=== PATIENT | female | born 1995 | race African-American/Black ===

== ENCOUNTER 2018-08-23 05:02 | Emergency (ER) | payer MEDICAID ==
[~2018-08-23] VITALS: Ht 165.1 cm; Wt 53.6 kg
[2018-08-23 06:42] LABS: BASOPHILS % 2.2 % (0.0-2.0); EOSINOPHILS % 5.1 % (0.0-5.0); HEMATOCRIT. 37.4 % (36.0-48.0); HEMOGLOBIN. 12.7 g/dL (12.0-16.0); LYMPHOCYTES % 43.1 % (20.0-50.0); MEAN CORPUSCULAR HEMOGLOBIN 30.1 pg (28.0-32.0); MEAN CORPUSCULAR VOLUME 88.9 fL (81.0-99.0); MEAN PLATELET VOLUME 9.4 fl (7.4-10.4); MONOCYTES % 9.9 % (2.0-8.0); NEUTROPHILS % 39.7 % (40.0-76.0); PLATELET 210 x1000/uL (130-400); RED BLOOD CELL COUNT 4.21 mill/uL (4.2-5.4); RED CELL DISTRIBUTION WIDTH 12.7 % (11.6-14.6)
[2018-08-23 06:45] LABS: CHLORIDE 109 mEq/L (98-107)
[2018-08-23 06:46] LABS: INR 1.1; PROTHROMBIN TIME 11.4 sec (9.1-11.1)
[2018-08-23 07:50] LABS: CLARITY URINE CLEAR (CLEAR); COLOR URINE YELLOW (YELLOW); KETONES URINE NEGATIVE (NEGATIVE); LEUKOCYTE ESTERASE URINE NEGATIVE (NEGATIVE); NITRITE URINE NEGATIVE (NEGATIVE); OCCULT BLOOD URINE NEGATIVE (NEGATIVE); PROTEIN URINE NEGATIVE (NEGATIVE); SPECIFIC GRAVITY URINE 1.028 (1.005-1.030); UROBILINOGEN URINE 0.2 E.U./dL (0.2-1.0)
[2018-08-23 09:17] VITALS: BP 99/62
== END 2018-08-23 09:20 | disposition home or self-care (01) ==
LOC: ER 05:02
DX: R07.89 Other chest pain (principal); J45.909 Unspecified asthma, uncomplicated
CPT/HCPCS: 36415; 71045; 81025; 84484; 85379; 99284

== ENCOUNTER 2019-06-24 16:16 | Emergency (ER) | payer MEDICAID, OTHER ==
[~2019-06-24] VITALS: Ht 165.1 cm; Wt 59.0 kg
[2019-06-24] MEDS ORDERED: IBUPROFEN 600MG TABLET PO ONE (17:00)
[2019-06-24] MEDS ORDERED: ALBUTEROL (0.083%) 2.5MG/3ML NEB HHN ONE ×2 (17:15→18:00)
[2019-06-24] MEDS ORDERED: PREDNISONE 20MG TABLET PO ONE (17:15)
[2019-06-24] MEDS ORDERED: ACETAMINOPHEN 325MG TABLET PO ONE (18:00)
[2019-06-24 18:46] VITALS: BP 112/64
== END 2019-06-24 18:47 | disposition home or self-care (01) ==
LOC: ER 16:16
DX: R07.89 Other chest pain (principal); J45.909 Unspecified asthma, uncomplicated
CPT/HCPCS: 71045; 81025; 93005; 94640; 99284; J7512; J7611; Z7610

== ENCOUNTER 2019-11-21 09:55 | Emergency (ER) | payer OTHER ==
[~2019-11-21] VITALS: Ht 170.2 cm; Wt 57.0 kg
[2019-11-21] MEDS ORDERED: IBUPROFEN 600MG TABLET PO ONE (10:45)
[2019-11-21 11:06] VITALS: BP 112/80
== END 2019-11-21 11:06 | disposition home or self-care (01) ==
LOC: ER 10:03
DX: N63.0 Unspecified lump in unspecified breast (principal); J45.909 Unspecified asthma, uncomplicated
CPT/HCPCS: 81025; 99282

== ENCOUNTER 2019-12-03 01:54 | Emergency (ER) | payer OTHER ==
[~2019-12-03] VITALS: Ht 165.1 cm; Wt 67.0 kg
[2019-12-03 03:19] LABS: HCG SCREEN NEGATIVE
[2019-12-03 05:27] VITALS: BP 117/72
== END 2019-12-03 05:30 | disposition home or self-care (01) ==
LOC: ER 01:54
DX: R07.89 Other chest pain (principal); J45.909 Unspecified asthma, uncomplicated
CPT/HCPCS: 36415; 71045; 84484; 84703; 93005; 99285

== ENCOUNTER 2020-01-22 12:33 | Emergency (ER) | payer OTHER ==
[~2020-01-22] VITALS: Ht 165.1 cm; Wt 64.0 kg
[2020-01-22 12:41] VITALS: BP 121/72
== END 2020-01-22 13:13 | disposition home or self-care (01) ==
LOC: ER 12:33
DX: J45.909 Unspecified asthma, uncomplicated (principal)
CPT/HCPCS: 99283

== ENCOUNTER 2020-04-27 00:34 | Emergency (ER) | payer OTHER ==
[~2020-04-27] VITALS: Ht 167.6 cm; Wt 61.0 kg
[2020-04-27] MEDS ORDERED: PENICILLIN G BENZATHINE 1,200,000 UNITS/2ML SYR IM ONE (01:15)
[2020-04-27] MEDS ORDERED: KETOROLAC 60MG/2ML VIAL IM ONE (01:15)
[2020-04-27 01:53] VITALS: BP 116/91
== END 2020-04-27 02:11 | disposition home or self-care (01) ==
LOC: ER 00:34
DX: J03.90 Acute tonsillitis, unspecified (principal); J45.909 Unspecified asthma, uncomplicated
CPT/HCPCS: 81025; 87430; 96372; 99284; J0561; J1885

== ENCOUNTER 2020-07-14 03:37 | Emergency (ER) | payer OTHER ==
[~2020-07-14] VITALS: Ht 165.1 cm; Wt 65.0 kg
[2020-07-14] MEDS ORDERED: ACETAMINOPHEN 325MG TABLET PO STA (04:31)
[2020-07-14 04:34] LABS: CLARITY URINE CLEAR (CLEAR); COLOR URINE YELLOW (YELLOW); KETONES URINE NEGATIVE (NEGATIVE); LEUKOCYTE ESTERASE URINE TRACE (NEGATIVE); NITRITE URINE NEGATIVE (NEGATIVE); OCCULT BLOOD URINE NEGATIVE (NEGATIVE); PH URINE 5.5 (4.5-8.0); PROTEIN URINE NEGATIVE (NEGATIVE); SPECIFIC GRAVITY URINE 1.023 (1.005-1.030); UROBILINOGEN URINE 0.2 E.U./dL (0.2-1.0)
[2020-07-14 04:52] LABS: BASOPHILS % 1.1 % (0.0-2.0); EOSINOPHILS % 6.6 % (0.0-5.0); HEMATOCRIT. 38.5 % (36.0-48.0); HEMOGLOBIN. 13.1 g/dL (12.0-16.0); LYMPHOCYTES % 48.5 % (20.0-50.0); MEAN CORPUSCULAR VOLUME 87.8 fL (81.0-99.0); MEAN PLATELET VOLUME 9.7 fl (7.4-10.4); MONOCYTES % 8.8 % (2.0-8.0); PLATELET 221 x1000/uL (130-400); RED BLOOD CELL COUNT 4.39 mill/uL (4.2-5.4); RED CELL DISTRIBUTION WIDTH 12.5 % (11.6-14.6)
[2020-07-14 04:57] LABS: CHLORIDE 109 mEq/L (98-107)
[2020-07-14 05:09] LABS: B-HCG QUANTITATIVE < 1 mIU/mL (<3)
[2020-07-14 05:33] VITALS: BP 123/67
== END 2020-07-14 05:35 | disposition home or self-care (01) ==
LOC: ER 03:37
DX: R10.30 Lower abdominal pain, unspecified (principal); J45.909 Unspecified asthma, uncomplicated
CPT/HCPCS: 36415; 76830; 76856; 80053; 81003; 81025; 84702; 85025; 86850; 86900; 93005; 99285

== ENCOUNTER 2022-09-12 11:36 | Emergency (ER) | payer MEDICAID, OTHER ==
[~2022-09-12] VITALS: Ht 165.1 cm; Wt 68.0 kg
[2022-09-12 12:04] VITALS: BP 108/77
== END 2022-09-12 18:53 | disposition left against medical advice (07) ==
LOC: ER 11:36
DX: Z53.21 Procedure and treatment not carried out due to patient leaving prior to being seen by health care provider (principal)
CPT/HCPCS: 71045; 93005